=== PATIENT | male | born 2000 | race Caucasian/White ===

== ENCOUNTER 2023-07-17 10:16 | Emergency (ER) | payer SELFPAY ==
[~2023-07-17] VITALS: Ht 172.7 cm; Wt 64.9 kg
[2023-07-17 11:57] VITALS: BP 119/70; PULSE 72; RESP 18; TEMP 98; O2SAT 98
== END 2023-07-17 11:42 | disposition home or self-care (01) ==
LOC: FSED 10:25
DX: K40.90 Unilateral inguinal hernia, without obstruction or gangrene, not specified as recurrent (principal); F84.0 Autistic disorder
CPT/HCPCS: 99283